=== PATIENT | female | born 1940 | race Caucasian/White ===

== ENCOUNTER → 2016-09-11 | Outpatient (CLI) | payer MEDICARE ==
[~2016-09-11] MED LIST: REGADENOSON 0.4 MG/5 ML DISP.SYRIN. IV ONE
--- NOTE | 2016-09-11 18:12 | PCVCIMAG ---
APPROVED REPORT Study performed: 09/11/2016 09:09:12 EXAM: Comprehensive 2D, Doppler, and color-flow Echocardiogram Patient Location: Echo lab Status: routine Other Information Study Quality: Adequate Indications Pre-Chemo murmur, palpitations 2D Dimensions LVEF(%): 52.46 (>50%) IVSd: 14.69 (7-11mm)LVOT Diam: 20.00 (18-24mm) LVDd: 47.78 mm PWd: 12.73 (7-11mm)Ascending Ao: 23.73 (22-36mm) LVDs: 34.91 (25-40mm) Left Atrium: 38.25 (27-40mm) Aortic Root: 25.11 mm Luna's LVEF: 52.46 % Volumes Left Atrial Volume (Systole) Single Plane 4CH: 42.93 mLSingle Plane 2CH: 57.12 mL LA ESV Index: 30.00 mL/m2 Aortic Valve AoV Peak Travis.: 4.09 m/s AO Peak Gr.: 66.82 mmHgLVOT Max P.78 mmHg AO Mean Gr.: 42.31 mmHgLVOT Mean P.24 mmHg AO V2 Mean: 3.13 m/sLVOT Max V: 1.09 m/s AO V2 VTI: 107.06 cmLVOT Mean V: 0.70 m/s PABLO (VTI): 0.79 [id number] V1 VTI: 27.11 cm PABLO Vmax: 0.84 cm2 AI Vmax: 3.83 m/sSV (LVOT): 85.11 mL AI Graves: 1.26 m/s2 AI PHT: 880.10 ms Mitral Valve E/A Ratio: 0.7 MV Decel. Time: 237.08 ms MV E Max Travis.: 0.71 m/s MV A Travis.: 1.05 m/s IVRT: 72.66 ms Pulmonary Valve PV Peak Gr.: 4.05 mmHg Left Ventricle The left ventricle is normal size. There is normal LV segmental wall motion. Mild to moderate concentric left ventricular hypertrophy. Left ventricular systolic function is normal. The left ventricular ejection fraction is within the normal range. LVEF is 55-60%. Grade I - abnormal relaxation pattern. Right Ventricle The right ventricle is normal size. The right ventricular systolic function is normal. Atria The left atrium size is normal. The right atrium size is normal. Aortic Valve Mild aortic regurgitation. Severe aortic stenosis. Aortic Valve Area is 0.8cm2. Peak gradient is 67mmhg. Mean gradient is 42mmhg. Mitral Valve The mitral valve is normal in structure. There is no mitral valve regurgitation noted. No evidence of mitral valve stenosis. Tricuspid Valve The tricuspid valve is normal in structure. There is no tricuspid valve regurgitation noted. Pulmonic Valve The pulmonary valve is normal in structure. There is no pulmonic valvular regurgitation. Great Vessels The aortic root is normal in size. IVC is normal in size and collapses with >50% inspiration Pericardium There is no pericardial effusion. <Conclusion> The left ventricle is normal size. LVEF is 55-60%. Grade I - abnormal relaxation pattern. The right ventricle is normal size. The left atrium size is normal. Mild aortic regurgitation. There is no mitral valve regurgitation noted. The aortic root is normal in size. There is no pericardial effusion.
--- NOTE | 2016-09-11 18:25 | PCVCIMAG ---
APPROVED REPORT Exam: Nuclear Stress Test Indication: Dyspnea , Palpitations, Murmur, Aortic Stenosis Patient Location: Out-Patient Stress Nurse: Mary Jane Riggs RN, Christie Ryan RN SD Tech:Meri DELFINA Snider Ht: 5 ft 2 in Wt: 270 lbs BSA: 2.17 m2 HR: 62 bpm BP: 151/70 mmHg BMI: 49.3 Rhythm: SR Medical History Medical History: COPD - Asthma Medications: Advair, Albuterol Allergies: Many - refer to chart. Non interfering with test Cardiac Risk Factors: Age Pretest Chest Pain Characteristics: No chest pain Exercise History: Sedentary NM EXAM: Myocardial Perfusion REST/STRESS Imaging Protocol: Rest Tc-99m/Stress Tc-99m 1 day Resting Data Rest SPECT myocardial perfusion imaging was performed in supine position 45 minutes following the intravenous injection of 14.9 mCi of Tc-99m Sestamibi. Time of rest injection: 1020 Date: 09/11/2016 Pharmacologic Stress Pharmacologic stress test was performed by injecting Regadenoson 0.4 mg IV push followed by the intravenous injection of 40.1 mCi of Tc-99m Sestamibi. Time of stress injection: 1130 Date: 09/11/2016 Administration Route: IV Administration Site: Left Arm Gated Stress SPECT was performed 45 minutes after stress injection. The images were gated to evaluate regional wall motion and calculate left ventricular ejection fraction. Study Quality Study: Good Artifact: Mild Breast artifact Study Data Post stress, the left ventricular ejection was 61%.. SSS: 9 SRS: 12 SDS: 0 TID = 1.02. Perfusion There is a medium area of mildly reduced uptake in the entire segment of the anterior wall which is seen on the stress images as well as the resting images. This area thickens and moves normally and is most consistent with attenuation artifact. Wall Motion Normal left ventricular function with no regional wall motion abnormalities. Mild chamber dilatation. Nuclear Conclusion No evidence of stress induced ischemia or prior myocardial infarction. Normal left ventricular function with no regional wall motion abnormalities. Mild chamber dilatation. No change since prior study dated July 2014. Interpreted by: Errol Hall MD Electronically Approved: 09/11/2016 14:04:42 Stress Test Details Stress Test: Pharmacologic stress testing performed using 0.4 mg of regadenoson per 5 mL given IV over 10 seconds. Reason for pharmacologic stress test: physical limitation. HR Resting HR: 62 bpmMax Heart Rate (APMHR): 145 bpm Max HR Achieved: 86 bpmTarget HR (85% APMHR): 123 bpm % of APMHR: 59 Recovery HR: 79 bpm BP Resting BP: 151/70 mmHg Max BP: 156/70 mmHg Recovery BP: 130/62 mmHg ECG Resting ECG: Sinus Rhythm Stress ECG: Sinus Rhythm, Sinus Rhythm, NSSTT changes Recovery ECG: Sinus Rhythm Clinical Reason for Termination: Completed protocol Stress Symptoms: Chest Heaviness Exercise duration: 0 min 55 sec Symptoms resolved during recovery. Stress ECG Conclusion ECG: Non-ischemic <Conclusion> ECG: Non-ischemic
== END | disposition home or self-care (01) ==
LOC: PCVCIMAG 09:16
PROVIDERS: ATTEND Internal Medicine Cardiovascular Disease
DX: Z01.810 Encounter for preprocedural cardiovascular examination (principal); I35.0 Nonrheumatic aortic (valve) stenosis; I35.1 Nonrheumatic aortic (valve) insufficiency; J44.9 Chronic obstructive pulmonary disease, unspecified
CPT/HCPCS: 78452; 93017; 93306; A9500; J2785

== ENCOUNTER → 2017-08-14 | Outpatient (CLI) | payer MEDICARE, OTHER | END | disposition home or self-care (01) | LOC: PCVCIMAG 11:51 | DX: I65.23 Occlusion and stenosis of bilateral carotid arteries (principal); I08.0 Rheumatic disorders of both mitral and aortic valves; E78.00 Pure hypercholesterolemia, unspecified; I10 Essential (primary) hypertension; R42 Dizziness and giddiness; R55 Syncope and collapse; I25.10 Atherosclerotic heart disease of native coronary artery without angina pectoris; G47.33 Obstructive sleep apnea (adult) (pediatric); R00.2 Palpitations; R94.31 Abnormal electrocardiogram [ECG] [EKG]; Z88.8 Allergy status to other drugs, medicaments and biological substances; Z79.899 Other long term (current) drug therapy | CPT/HCPCS: 80061; 93005; 93306; 93880; G0463 ==

== ENCOUNTER → 2017-12-19 | Outpatient (CLI) | payer MEDICARE, OTHER | END | disposition home or self-care (01) | LOC: PCVCCLINIC 13:03 | PROVIDERS: ATTEND Internal Medicine Cardiovascular Disease | DX: I35.0 Nonrheumatic aortic (valve) stenosis (principal); I87.8 Other specified disorders of veins; R01.1 Cardiac murmur, unspecified; E78.00 Pure hypercholesterolemia, unspecified; I10 Essential (primary) hypertension; I65.29 Occlusion and stenosis of unspecified carotid artery; J45.909 Unspecified asthma, uncomplicated; I25.10 Atherosclerotic heart disease of native coronary artery without angina pectoris | CPT/HCPCS: 93005; G0463 ==

== ENCOUNTER → 2018-07-08 | Outpatient (CLI) | payer MEDICARE, OTHER ==
--- NOTE | 2018-07-09 09:46 | PCVCIMAG ---
APPROVED REPORT Study performed: 07/08/2018 13:05:24 EXAM: Comprehensive 2D, Doppler, and color-flow Echocardiogram Patient Location: Echo lab Status: routine BSA: 2.10 HR: 72 bpmBP: 140/90 mmHg Rhythm: NSR Other Information Study Quality: Adequate Risk Factors: Cardiac Risk Factors: HTN, Hyperlipidemia Indications Aortic Stenosis 2D Dimensions IVSd: 10.25 (7-11mm)LVOT Diam: 19.76 (18-24mm) LVDd: 56.88 mm PWd: 11.06 (7-11mm)Ascending Ao: 36.49 (22-36mm) LVDs: 44.53 (25-40mm) Left Atrium: 47.26 (27-40mm) Aortic Root: 27.18 mm LV Single Plane 4CH: 52.47 % LV Single Plane 2CH: 55.29 % Biplane EF: 50.4 % Volumes Left Atrial Volume (Systole) Single Plane 4CH: 107.03 mLSingle Plane 2CH: 58.42 mL LA ESV Index: 38.00 mL/m2 Aortic Valve AoV Peak Travis.: 4.55 m/s AO Peak Gr.: 82.70 mmHgLVOT Max P.32 mmHg AO Mean Gr.: 63.46 mmHgLVOT Mean P.14 mmHg AO V2 Mean: 3.95 m/sLVOT Max V: 1.04 m/s AO V2 VTI: 116.68 cmLVOT Mean V: 0.70 m/s PABLO (VTI): 0.59 [id number] V1 VTI: 22.28 cm PABLO Vmax: 0.70 cm2 AI Vmax: 4.04 m/sSV (LVOT): 68.28 mL AI Ransom: 2.61 m/s2 AI PHT: 448.71 ms Mitral Valve E/A Ratio: 1.0 MV Decel. Time: 229.48 ms MV E Max Travis.: 0.93 m/s MV A Travis.: 0.95 m/s TDI E/Lateral E': 18.60E/Medial E': 13.29 Medial E' Travis.: 0.07 m/s Preload (E/e): 0.00 (0-8m/s)Lateral E' Travis.: 0.05 m/s Pulmonary Valve PV Peak Gr.: 2.55 mmHg Pulmonary Vein P Vein S: 0.64 m/sP Vein A: 0.48 m/s P Vein D: 0.50 m/sP Vein A Dur.: 148.8 msec P Vein S/D Ratio: 1.28 Tricuspid Valve TR Peak Travis.: 3.12 m/s TR Peak Gr.: 39.00 mmHg Left Ventricle The left ventricle is normal size. There is normal LV segmental wall motion. Mild concentric left ventricular hypertrophy. Left ventricular systolic function is normal. The left ventricular ejection fraction is within the normal range. LVEF is 60-65%. Grade I - abnormal relaxation pattern. Right Ventricle The right ventricle is normal size. The right ventricular systolic function is normal. Atria The left atrium size is normal. The right atrium size is normal. Aortic Valve Aortic valve leaflets are moderately thickened. Mild aortic regurgitation. Aortic valve area is 0.6cm2. Peak gradient is 83mmHg. Mean gradient is 64mmHg. Mitral Valve The mitral valve is normal in structure. Mild mitral regurgitation. No evidence of mitral valve stenosis. Tricuspid Valve The tricuspid valve is normal in structure. Mild tricuspid regurgitation. Pulmonary artery pressure is 46mmHg. Pulmonic Valve The pulmonary valve is normal in structure. There is no pulmonic valvular regurgitation. Great Vessels The aortic root is normal in size. IVC is normal in size and collapses >50% with inspiration. Pericardium There is no pericardial effusion. <Conclusion> The left ventricle is normal size. LVEF is 60-65%. Mild concentric left ventricular hypertrophy. Grade I - abnormal relaxation pattern. The right ventricular systolic function is normal. The left atrium size is normal. Aortic valve leaflets are moderately thickened. Mild aortic regurgitation. Aortic valve area is 0.6cm2. Peak gradient is 83mmHg. Mean gradient is 64mmHg. Mild mitral regurgitation. Mild tricuspid regurgitation. Pulmonary artery pressure is 46mmHg. The aortic root is normal in size. There is no pericardial effusion.
== END | disposition home or self-care (01) ==
LOC: PCVCIMAG 12:51
PROVIDERS: ATTEND Internal Medicine Cardiovascular Disease
DX: I08.3 Combined rheumatic disorders of mitral, aortic and tricuspid valves (principal); E78.00 Pure hypercholesterolemia, unspecified; I87.8 Other specified disorders of veins; R53.83 Other fatigue; M19.90 Unspecified osteoarthritis, unspecified site
CPT/HCPCS: 36415; 80061; 93005; 93306; G0463